=== PATIENT | female | born 1980 | race Caucasian/White ===

== ENCOUNTER 2019-05-05 01:00 | Observation (INO) | payer BC ==
--- NOTE | 2019-05-05 01:14 | PDOC.FPRHP ---
- History of Present Illness Chief Complaint: snake bite History of Present Illness: 38yoF presented to the [place] ED approximately 20 min after being bit by a copperhead on her left ankle. Patient states she was walking her dog in the yard and got bit by a "baby copperhead." Initially had significant pain in the L ankle, but this improved after pain medication. Denies any numbness or tingling in L ankle. She was able to bear weight on the leg. Patient did vomit on the way to the ER - she believes this was due to motion sickness. ED Course: [place]: 4 vials of crofab, 1mg dilaudid (2300), 4mg x2 zofran. - Allergies/Adverse Reactions Allergies Allergy/AdvReac Type Severity Reaction Status Date / Time No Known Allergies Allergy Verified 05/05/19 03:57 - Home Medications Medication Instructions Recorded Confirmed Type Acetaminophen [Tylenol Regular 650 mg PO Q6H PRN 30 Days #120 tab 05/05/19 Rx Strength] Escitalopram Oxalate [Lexapro] 20 mg PO DAILY 05/05/19 05/05/19 History Ibuprofen [Motrin] 800 mg PO Q8H PRN 30 Days #90 tab 05/05/19 Rx - History PMHx: anxiety, depression PSHx: tubal ligation FHx: father - alcoholic, drug use; uncle - DM Social: former tobacco use - smoked 20 yrs, 1pack/day; denies alcohol or drug use; former drug use No allergies - Review of Systems General: denies: fever/chills, weight/appetite/sleep changes, night sweats, fatigue Eyes: denies: vision changes ENT: denies: nasal congestion, rhinorrhea Respiratory: denies: cough, congestion, shortness of breath Cardiovascular: denies: chest pain, palpitation, edema Gastrointestinal: reports: nausea, vomiting. denies: diarrhea, constipation, abdominal pain Genitourinary: denies: dysuria Skin: reports: other (puncture wound from bite). denies: rashes, lesions Musculoskeletal: reports: pain, tenderness, swelling. denies: stiffness Neurological: denies: numbness, syncope, seizure, weakness Psychological: reports: anxiety, depression - Vital signs BP: 128/86, MAP: 100, Pulse: 86, Resp: 19, Temp: 98.1 (Oral), Pain: 2, O2 sat: 98 on (Room Air), Time: 05/05/2019 01:05. Weight 66kg - Physical Exam Constitutional: NAD, awake, alert and oriented, well developed HEENT: normocephalic and atraumatic, conjunctiva clear, grossly normal vision, grossly normal hearing, MMM Neck: supple, trachea midline Heart: RRR, normal S1/S2, no murmurs/rubs/gallops, pulses present Lungs: CTAB, no respiratory distress, good air movement Abdomen: soft, non-tender Musculoskeletal: normal structure, normal tone -Musculoskeletal: mild swelling of the left ankle. marked with sharpie. non-tender. good pedal pulses. Neurological: no focal deficit, normal sensation Skin: no rash/lesions, good turgor Heme/Lymphatic: no unusual bruising or bleeding, no purpura, no petechia Psychiatric: normal mood and affect, good judgment and insight, intact recent and remote memory FMR H&P: Results - Labs Result Diagrams: 05/05/19 01:57 FMR H&P: A/P - Problem List (1) Snake envenomation Current Visit: Yes Status: Acute Code(s): T63.001A - TOXIC EFFECT OF UNSP SNAKE VENOM, ACCIDENTAL, INIT - Plan Snake envenomization s/p 4vials of crofab at [place]. Received 1mg dilaudid, currently not in pain. Tylenol and Motrin for primary pain control, morphine prn Will reevaluate swelling in the morning. If improving, likely d/c in the morning Depression Continue Lexapro Dispo: stable Code: full PCP: Adolfo FMR H&P: Upper Level - Plan Date/Time: 05/05/19111 IAlba MD, have evaluated this patient and agree with findings/plan as outlined by internet sales director resident. Pertinent changes/additions are listed here. HPI: This is a 38yo F who presented to the ER as a transfer after a copperhead bite ot the L ankle. 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 She noted pain to the L ankle. She states that she was walking her dog in the yard and saw a baby copperhead and it bit her on the back of her left ankle. She denies any numbness or tingling to the extremity. She endorses vomiting on the way to the ER but she feels this was more due to motion sickness. She denies any fever, chills, chest pain, palpitations, SOB. See internet sales director note for full details of histories. PE: General: NAD, resting in bed, well developed, pink hair HEENT: NC/AT Cardio: RRR, no murmurs, rubs or gallops Resp: CTAB Abd: soft, non distended, normal BS MSK/SKIN: swelling to L ankle confined to ankle, 2 bite cee noted on posteral lateral L ankle, mild erythema, pulses intact Psych: normal affect/mood, axox3 Plan: [place] Snakebite to L posterior ankle s/p crofab at outside ER. All labs normal. - Will repeat coags in the AM - Monitor swelling to L ankle, elevate LLE - Tylenol, ibuprofen for mild-mod pain, morphine for severe pain Anxiety associated with depression - continue home lexapro Dispo: admit to medical, obs Diet: reg VTE: none PCP: PILAR Mata Will discuss case with attending in the AM Addendum - Attending - Attending Attestation Date/Time: 05/05/19 1033 I personally evaluated the patient and discussed the management with Dr. Puckett I agree with the History, Examination, Assessment and Plan documented above with any addition or exceptions noted below. History and exam repeated by me and agree with residents. Will monitor until 1200 today and likely d/c if no spread. Labs unchanged. will give rx for crutches.
[2019-05-05] MEDS ORDERED: Acetaminophen 325 MG TAB PO PRN (01:43)
[2019-05-05] MEDS ORDERED: Ibuprofen 600 MG TAB PO PRN (01:43)
[2019-05-05] MEDS ORDERED: Morphine 2 MG/ML SYRINGE SLOW IVP PRN (01:43)
[2019-05-05] MEDS ORDERED: Ondansetron ODT 4 MG TAB PO PRN (01:43)
[2019-05-05 02:21] LABS: PTT 33.9 SEC (22.9-36.1); Prothrombin Time 13.1 SEC (12.0-14.7)
[2019-05-05 02:24] LABS: #Lymphocytes 1.3 thou/uL (1.20-3.40); #Monocytes 0.5 thou/uL (0.11-0.59); #Neutrophils 6.6 thou/uL (1.40-6.50); %Basophils 0.4 % (0.0-1.0); %Eosinophils 0.4 % (0.0-10.0); %Lymphocytes 15.6 % (21.0-51.0); %Monocytes 6.3 % (0.0-10.0); %Neutrophils 77.3 % (42.0-75.0); Hemoglobin 13.8 g/dL (12.0-16.0); Mean Corpuscular HGB CONC 34.7 g/dL (32.0-36.0); Mean Corpuscular Hemoglobin 30.3 pg (27.0-31.0); Mean Corpuscular Volume 87.3 fL (78.0-98.0); Mean Platelet Volume 8.1 fL (7.4-10.4); Platelet Count 259 thou/uL (130-400); RBC Distribution Width 13.5 % (11.5-14.5); Red Blood Cell (RBC) Count 4.54 mill/uL (4.20-5.40); White Blood Cell (WBC) Count 8.5 thou/uL (4.8-10.8)
[2019-05-05] MEDS ORDERED: Morphine 4 MG/ML VIAL ONE (02:29)
[2019-05-05 03:00] VITALS: BMI 25.8
[2019-05-05] MEDS ORDERED: Ibuprofen 800 MG TAB PO PRN (10:01)
[2019-05-05 11:50] VITALS: BP 100/58; TEMP 98
--- NOTE | 2019-05-05 16:38 | DIS ---
DATE OF ADMISSION: 05/05/2019 DATE OF DISCHARGE: 05/05/2019 RESIDENT: Zander Beyer MD ADMITTING & DISCHARGE ATTENDING: Julio Toscano MD CONSULTATIONS: None. PROCEDURES: None. PRIMARY DIAGNOSIS: Snake envenomation. SECONDARY DIAGNOSES: Depression. DISCHARGE MEDICATIONS: 1. Acetaminophen 650 mg q.6 hours p.r.n. for pain. 2. Ibuprofen 800 mg p.o. q.8 hours p.r.n. for pain. 3. Continue home dose of Lexapro 20 mg daily. DISCONTINUED MEDICATIONS: 1. Morphine. 2. CroFab. 3. Zofran. HISTORY OF PRESENT ILLNESS: The patient is a 38-year-old female, who presented to [place] ED approximately 20 minutes after being bit by a copperhead on her left ankle. The patient states she was walking her dog in the yard and got bit by baby copperhead. Initially, she had significant pain in the left ankle, but this improved after pain medication. Denies any numbness or tingling in the left ankle. She was able to bear weight on the leg. The patient did vomit on the way to the ER. She believes this was due to motion sickness. In [facility], she was given four vials of CroFab, 1 mg of Dilaudid at 2300 hours, and 4 mg x2 of Zofran. 1. Snake Envenomation Status post four vials of CroFab at [facility], received 1 mg of Dilaudid * Tylenol and Motrin for pain control in hospital with morphine p.r.n. for severe pain, which she did not require during the hospitalization. * She was discharged home with Tylenol and Motrin. * Swelling was evaluated. * Initially, it spread to the entire foot, but receded before discharge. 2. Depression Continue Lexapro. DISPOSITION: Stable. DISCHARGE INSTRUCTIONS: 1. Location: Home. 2. Activity: As tolerated. Script was given for crutches because the patient said she was unable to bear weight on the left foot. 3. Diet: Regular. 4. Followup: Follow up with Dr. Mata at [facility] in 7 days. Job ID: [id number] [facility]
== END 2019-05-05 15:02 | disposition home or self-care (01) ==
LOC: ERS 01:00 → 2SW 01:35
PROVIDERS: ADMIT Family Medicine; ATTEND Family Medicine
DX: T63.091A Toxic effect of venom of other snake, accidental (unintentional), initial encounter (principal); F17.210 Nicotine dependence, cigarettes, uncomplicated; F32.9 Major depressive disorder, single episode, unspecified; F41.9 Anxiety disorder, unspecified; Z79.899 Other long term (current) drug therapy
CPT/HCPCS: 36415; 85025; 85384; 85610; 85730; 96374; G0378; J2270

== ENCOUNTER 2021-06-10 12:53 | Day surgery (SDC) | payer BC ==
[~2021-06-10 12:53] MED LIST: Acetaminophen 500 MG TAB PO SCH; Ferumoxytol (NON ERSD) 510 MG in Sodium Chloride 0.9% 150 ML IVPB SCH
[2021-06-10] MEDS ORDERED: Acetaminophen 500 MG TAB ONE ×2 (13:06)
[2021-06-10 13:11] VITALS: BP 115/66
== END 2021-06-10 14:04 | disposition home or self-care (01) ==
LOC: ONC/OP 12:53
PROVIDERS: ATTEND Family Medicine
DX: D50.9 Iron deficiency anemia, unspecified (principal)
CPT/HCPCS: 96365; J3490; Q0138

== ENCOUNTER 2021-09-12 09:16 | Outpatient (CLI) | payer BC | END 2021-09-12 09:17 | disposition home or self-care (01) | LOC: BICMAMMO 09:16 | PROVIDERS: ATTEND Student in an Organized Health Care Education/Training Program | DX: Z12.31 Encounter for screening mammogram for malignant neoplasm of breast (principal); Z80.3 Family history of malignant neoplasm of breast | CPT/HCPCS: 77063; 77067 ==

== ENCOUNTER 2022-01-28 07:38 | Observation (INO) | payer OTHER, BC ==
[2022-01-28] MEDS ORDERED: Ondansetron PF 4 MG/2 ML Vial ONE (07:52)
[2022-01-28] MEDS ORDERED: Morphine 4 MG/ML VIAL ONE (07:52)
[2022-01-28 08:25] LABS: BHCG - Serum Negative (NEGATIVE); Pregs Control Background? CLEAR/WHITE (CLR/WHITE); Pregs Control Bar Appear? YES (CONTROL BAR)
[2022-01-28 08:27] LABS: #Eosinphils 0.1 thou/uL (0.0-0.7); #Lymphocytes 1.3 thou/uL (1.20-3.40); #Monocytes 0.8 thou/uL (0.11-0.59); #Neutrophils 8.1 thou/uL (1.40-6.50); %Basophils 0.2 % (0.0-1.0); %Eosinophils 0.9 % (0.0-10.0); %Monocytes 7.4 % (0.0-10.0); %Neutrophils 78.5 % (42.0-75.0); Hemoglobin 15.1 g/dL (12.0-16.0); Mean Corpuscular HGB CONC 33.6 g/dL (32.0-36.0); Mean Corpuscular Hemoglobin 30.7 pg (27.0-31.0); Mean Corpuscular Volume 91.5 fl (78.0-98.0); Mean Platelet Volume 7.7 fL (7.4-10.4); Platelet Count 281 10x3/uL (130-400); RBC Distribution Width 11.2 % (11.5-14.5); Red Blood Cell (RBC) Count 4.92 mill/uL (4.20-5.40); White Blood Cell (WBC) Count 10.3 10x3/uL (4.8-10.8)
[2022-01-28 08:38] LABS: ALT (SGPT) 19 U/L (8-55); AST (SGOT) 23 U/L (5-34); Albumin 4.6 g/dL (3.5-5.0); Alkaline Phosphatase 97 U/L (40-110); Anion Gap 14 mmol/L (10-20); BUN (Urea Nitrogen) 11 mg/dL (7.0-18.7); Bilirubin, Total 0.6 mg/dL (0.2-1.2); CK (CPK) 137 U/L (29-168); Calc. Creatinine Clearance 0 mL/min (70-130); Calcium 9.7 mg/dL (7.8-10.44); Carbon Dioxide 26 mmol/L (22-29); Chloride 104 mmol/L (98-107); Estimated GFR 82; Globulin 3.4 g/dL (2.4-3.5); Glucose 88 mg/dL (70-105); Potassium 3.9 mmol/L (3.5-5.1); Sodium 140 mmol/L (136-145)
[2022-01-28] MEDS ORDERED: Iopamidol-370 76% 500 ML 1 ML ONE (09:56)
[2022-01-28] MEDS ORDERED: Fentanyl 100 MCG/2 ML VIAL ONE (10:48)
[2022-01-28 11:20] LABS: SARS-CoV-2 NAA Rapid Test Not Detected (NotDetected)
[2022-01-28] MEDS ORDERED: HYDROcodone/Acetaminophen 5/325 mg Tablet ONE (14:01)
[2022-01-28] MEDS ORDERED: Acetaminophen 325 MG TAB PO PRN (15:44)
[2022-01-28] MEDS ORDERED: TETANUS, DIPHTHERIA TOX,ADULT (TDVAX) 0.5 ML VIAL IM ONE (15:44)
[2022-01-28] MEDS ORDERED: Dextrose 5% in Water 1,000 ML IV PRN (15:44)
[2022-01-28] MEDS ORDERED: traMADol HCl 50 MG TAB PO PRN ×2 (15:44→15:49)
[2022-01-28] MEDS ORDERED: Dextrose 50% Abboject 50 ML SYRINGE SLOW IVP PRN (15:44)
[2022-01-28] MEDS ORDERED: Ondansetron PF 4 MG/2 ML Vial IVP PRN (15:44)
[2022-01-28] MEDS ORDERED: Cyclobenzaprine 10 MG TAB PO PRN (15:50)
[2022-01-28 17:26] VITALS: BMI 27.4
[2022-01-28] MEDS: Ibuprofen 200 MG TAB PO SCH (18:34)
[2022-01-28] MEDS: traMADol HCl 50 MG TAB PO SCH (18:35)
[2022-01-28] MEDS: Famotidine 20 MG TAB PO SCH (22:00)
[2022-01-28] MEDS: Gabapentin 300 MG CAP PO SCH (22:43)
[2022-01-29] MEDS: Ibuprofen 200 MG TAB PO SCH ×3 (00:08→11:48)
[2022-01-29] MEDS: traMADol HCl 50 MG TAB PO SCH ×3 (00:08→11:50)
[2022-01-29] MEDS: Gabapentin 300 MG CAP PO SCH ×2 (09:04→14:15)
[2022-01-29] MEDS: Famotidine 20 MG TAB PO SCH (09:04)
[2022-01-29 14:04] VITALS: TEMP 98.2
[2022-01-29 14:53] VITALS: BP 109/69
== END 2022-01-29 14:36 | disposition home or self-care (01) ==
LOC: ERS 07:38 → SURG A 16:28
PROVIDERS: ADMIT Surgery; ATTEND Surgery
DX: S32.011A Stable burst fracture of first lumbar vertebra, initial encounter for closed fracture (principal); G89.11 Acute pain due to trauma; Z87.891 Personal history of nicotine dependence; Z79.899 Other long term (current) drug therapy; Z20.822 Contact with and (suspected) exposure to COVID-19; V47.5XXA Car driver injured in collision with fixed or stationary object in traffic accident, initial encounter
CPT/HCPCS: 70450; 71045; 71260; 72125; 74177; 80053; 82550; 84703; 85025; 96374; 96375; G0378; J2270; J2405; J3010; Q9967; U0002

== ENCOUNTER 2022-02-11 12:29 | Outpatient (CLI) | payer BC | END 2022-02-11 12:30 | disposition home or self-care (01) | LOC: RAD 12:29 | PROVIDERS: ATTEND Physician Assistant | DX: S32.011A Stable burst fracture of first lumbar vertebra, initial encounter for closed fracture (principal); M48.8X6 Other specified spondylopathies, lumbar region | CPT/HCPCS: 72100 ==

== ENCOUNTER 2022-03-10 12:11 | Outpatient (CLI) | payer BC | END 2022-03-10 12:12 | disposition home or self-care (01) | LOC: RAD 12:11 | PROVIDERS: ATTEND Surgery | DX: S32.009A Unspecified fracture of unspecified lumbar vertebra, initial encounter for closed fracture (principal) | CPT/HCPCS: 72100 ==

== ENCOUNTER 2022-04-22 10:24 | Outpatient (CLI) | payer BC | END 2022-04-22 10:25 | disposition home or self-care (01) | LOC: RAD 10:24 | PROVIDERS: ATTEND Surgery | DX: S32.010D Wedge compression fracture of first lumbar vertebra, subsequent encounter for fracture with routine healing (principal) | CPT/HCPCS: 72100 ==

== ENCOUNTER 2022-10-13 13:26 | Outpatient (CLI) | payer BC | END 2022-10-13 13:27 | disposition home or self-care (01) | LOC: BICMAMMO 13:26 | PROVIDERS: ATTEND Family Medicine | DX: Z12.31 Encounter for screening mammogram for malignant neoplasm of breast (principal); Z80.3 Family history of malignant neoplasm of breast | CPT/HCPCS: 77063; 77067 ==

== ENCOUNTER 2024-01-28 19:30 | Inpatient (IN) | payer BC ==
[~2024-01-28 19:30] MED LIST changes: -Acetaminophen 500 MG TAB PO SCH; -Ferumoxytol (NON ERSD) 510 MG in Sodium Chloride 0.9% 150 ML IVPB SCH; +Iopamidol-370 76% 500 ML MDV (1 ML CHARGE) ONE
[2024-01-28 20:08] LABS: #Basophils Less than 0.03 10x3/uL (0.0-0.2); #Eosinophils Less than 0.03 10x3/uL (0.0-0.7); %Basophils 0.1 % (0.0-1.0); %Lymphocytes 6.1 % (21.0-51.0); %Monocytes 3.5 % (0.0-10.0); %Neutrophils 89.9 % (42.0-75.0); Hematocrit 42.2 % (36.0-47.0); Hemoglobin 14.1 g/dL (12.0-16.0); Mean Corpuscular HGB CONC 33.4 g/dL (32.0-36.0); Mean Corpuscular Hemoglobin 29.9 pg (27.0-31.0); Mean Corpuscular Volume 89.4 fL (78.0-98.0); Mean Platelet Volume 9.4 fL (7.4-10.4); Platelet Count 339 10x3/uL (130-400); RBC Distribution Width 11.6 % (11.5-14.5); Red Blood Cell (RBC) Count 4.72 mill/uL (4.20-5.40)
[2024-01-28 20:19] LABS: BHCG - Serum Negative (NEGATIVE); Pregs Control Background? CLEAR/WHITE (CLR/WHITE); Pregs Control Bar Appear? YES (CONTROL BAR)
[2024-01-28 20:28] LABS: ALT (SGPT) 22 U/L (8-55); AST (SGOT) 27 U/L (5-34); Albumin 4.1 g/dL (3.5-5.0); Alkaline Phosphatase 109 U/L (40-110); Anion Gap 15 mmol/L (10-20); BUN (Urea Nitrogen) 8 mg/dL (7.0-18.7); Bilirubin, Total 0.4 mg/dL (0.2-1.2); Calc. Creatinine Clearance 0 mL/min (70-130); Calcium 9.3 mg/dL (7.8-10.44); Carbon Dioxide 22 mmol/L (22-29); Chloride 105 mmol/L (98-107); Estimated GFR 80; Globulin 4.1 g/dL (2.4-3.5); Glucose 152 mg/dL (70-105); Lipase 18 U/L (8-78); Magnesium 2.1 mg/dL (1.6-2.6); Protein, Total 8.2 g/dL (6.0-8.3); Sodium 138 mmol/L (136-145)
[2024-01-28] MEDS ORDERED: Morphine 4 MG/ML VIAL ONE ×2 (20:35→23:05)
[2024-01-28] MEDS ORDERED: Promethazine HCl 25 MG/ML VIAL ONE (20:36)
[2024-01-28 21:12] LABS: Bilirubin Negative (Negative); Blood, Urine Negative (Negative); CAUTI Indications for Culture Pelvic or flank pain; Clarity Turbid (Clear); Glucose, Urine (Dipstick) Normal (Negative); Ketone, Urine 150 mg/dL (Negative); Leukocyte Negative Leu/uL (Negative); Nitrite Negative (Negative); Protein, Urine (Dipstick) 20 mg/dL (Neg-Trace); Squamous Epithelial 0-3 HPF (0-3); Urobilinogen Normal mg/dL (Less than 2)
[2024-01-28 21:23] LABS: Bacteria/HPF Rare-Few HPF (None Seen); RBC/HPF 0-3 HPF (0-3); WBC/HPF 0-3 HPF (0-3)
[2024-01-28 21:24] LABS: Urine Culture Reflex No No
[2024-01-28] MEDS ORDERED: Piperacillin/Tazobactam 3.375 GM VIAL ONE (23:05)
[2024-01-28] MEDS ORDERED: Dextrose 5% in Water 1,000 ML IV PRN (23:53)
[2024-01-28] MEDS ORDERED: hydrALAZINE 20 MG/ML VIAL SLOW IVP PRN (23:53)
[2024-01-28] MEDS ORDERED: Dextrose 50% Abboject 50 ML SYRINGE SLOW IVP PRN (23:53)
[2024-01-28] MEDS ORDERED: Glucagon 1 MG/ML KIT IM PRN (23:53)
[2024-01-29 01:10] VITALS: BMI 26.9
[2024-01-29] MEDS: Piperacillin/Tazobactam 3.375 GM in Sodium Chloride 0.9% 100 ML IVPB SCH (03:17)
[2024-01-29] MEDS: HYDROcodone/Acetaminophen 7.5/325 mg Tablet PO PRN (03:17)
[2024-01-29] MEDS: Lactated Ringer's 1,000 ML IV SCH (03:18)
[2024-01-29 05:20] LABS: #Basophils 0.03 10x3/uL (0.0-0.2); %Basophils 0.2 % (0.0-1.0); %Eosinophils 0.2 % (0.0-10.0); %Lymphocytes 15.1 % (21.0-51.0); %Monocytes 10.6 % (0.0-10.0); %Neutrophils 73.6 % (42.0-75.0); Hematocrit 36.8 % (36.0-47.0); Hemoglobin 12.1 g/dL (12.0-16.0); Mean Corpuscular HGB CONC 32.9 g/dL (32.0-36.0); Mean Corpuscular Hemoglobin 29.3 pg (27.0-31.0); Mean Corpuscular Volume 89.1 fL (78.0-98.0); Platelet Count 270 10x3/uL (130-400); RBC Distribution Width 11.9 % (11.5-14.5); Red Blood Cell (RBC) Count 4.13 mill/uL (4.20-5.40)
[2024-01-29 05:52] LABS: Anion Gap 11 mmol/L (10-20); BUN (Urea Nitrogen) 7 mg/dL (7.0-18.7); Calc. Creatinine Clearance 113 mL/min (70-130); Calcium 7.9 mg/dL (7.8-10.44); Carbon Dioxide 21 mmol/L (22-29); Chloride 108 mmol/L (98-107); Estimated GFR 109; Glucose 118 mg/dL (70-105); Potassium 3.3 mmol/L (3.5-5.1); Sodium 137 mmol/L (136-145)
[2024-01-29] MEDS: Morphine 2 MG/ML VIAL SLOW IVP PRN (08:17)
[2024-01-29] MEDS: Potassium Chloride 20 MEQ in Premix 1 BAG IVPB SCH ×2 (08:20→15:34)
[2024-01-29] MEDS: Ondansetron PF 4 MG/2 ML Vial IVP PRN (08:23)
[2024-01-29] MEDS: busPIRone HCl 10 MG TAB PO SCH (08:26)
[2024-01-29] MEDS: BuPROPion XL 150 MG ER.TAB PO SCH (08:26)
[2024-01-29] MEDS ORDERED: fentaNYL 50 mcg/mL 1 mL Vial ONE (10:40)
[2024-01-29] MEDS ORDERED: Bupivacaine 0.25% HCL 30 ML VIAL ONE (10:50)
[2024-01-29] MEDS ORDERED: EPINEPHrine 1 MG/ML VIAL ONE (10:50)
[2024-01-29] MEDS ORDERED: Rocuronium Bromide 10 MG/ML (10ML VIAL) ONE (10:58)
[2024-01-29] MEDS ORDERED: PROPOFOL 20 ML ONE (10:58)
[2024-01-29] MEDS ORDERED: Lidocaine 2% PF 5 ML VIAL ONE (10:58)
[2024-01-29] MEDS ORDERED: fentaNYL PF 100 MCG/2 ML SYRINGE ONE (10:58)
[2024-01-29] MEDS ORDERED: Piperacillin/Tazobactam 3.375 GM VIAL ONE (11:01)
[2024-01-29] MEDS ORDERED: Midazolam HCl 2 mg/2 ml Vial ONE (11:05)
[2024-01-29] MEDS ORDERED: Ondansetron PF 4 MG/2 ML Vial ONE (11:24)
[2024-01-29] MEDS ORDERED: Dexamethasone 20 MG/5 ML VIAL ONE (11:24)
[2024-01-29] MEDS ORDERED: Ketorolac Tromethamine 30 MG (1 mL) VIAL ONE (11:24)
[2024-01-29] MEDS ORDERED: Esmolol 100 MG/10 ML VIAL ONE (11:26)
[2024-01-29] MEDS ORDERED: PHENYLEPHRINE-NS 100 MCG/ML 10 ML SYRINGE ONE (11:33)
[2024-01-29] MEDS ORDERED: SUGAMMADEX SODIUM 200 MG/2 ML VIAL ONE (12:03)
[2024-01-29] MEDS ORDERED: HYDROmorphone 2 MG/ML VIAL SLOW IVP PRN (12:28)
[2024-01-29] MEDS ORDERED: Promethazine HCl 25 MG/ML VIAL IM PRN (12:28)
[2024-01-29] MEDS ORDERED: Ondansetron HCl/PF 4 MG/2 ML Vial IVP PRN (12:28)
[2024-01-29] MEDS ORDERED: PACU-Morphine 4MG/ML VIAL SLOW IVP PRN (12:28)
[2024-01-29] MEDS: Amitriptyline HCl 25 MG TAB PO SCH (20:41)
[2024-01-29] MEDS: Acetaminophen 325 MG TAB PO PRN (20:42)
[2024-01-29] MEDS: Gabapentin 300 MG CAP PO SCH (20:42)
[2024-01-30 04:44] LABS: #Basophils Less than 0.03 10x3/uL (0.0-0.2); #Eosinophils Less than 0.03 10x3/uL (0.0-0.7); %Basophils 0.1 % (0.0-1.0); %Lymphocytes 8.6 % (21.0-51.0); %Monocytes 7.1 % (0.0-10.0); %Neutrophils 83.6 % (42.0-75.0); Hematocrit 35.4 % (36.0-47.0); Hemoglobin 11.8 g/dL (12.0-16.0); Mean Corpuscular HGB CONC 33.3 g/dL (32.0-36.0); Mean Corpuscular Hemoglobin 30.3 pg (27.0-31.0); Mean Corpuscular Volume 90.8 fL (78.0-98.0); Mean Platelet Volume 9.4 fL (7.4-10.4); Platelet Count 253 10x3/uL (130-400); RBC Distribution Width 11.9 % (11.5-14.5)
[2024-01-30 05:09] LABS: Anion Gap 12 mmol/L (10-20); BUN (Urea Nitrogen) 7 mg/dL (7.0-18.7); Calc. Creatinine Clearance 105 mL/min (70-130); Carbon Dioxide 23 mmol/L (22-29); Chloride 105 mmol/L (98-107); Estimated GFR 99; Glucose 122 mg/dL (70-105); Potassium 3.8 mmol/L (3.5-5.1); Sodium 136 mmol/L (136-145)
[2024-01-30 06:04] LABS: Calcium 8.7 mg/dL (7.8-10.44); Magnesium 1.9 mg/dL (1.6-2.6)
[2024-01-30 11:39] VITALS: BP 110/64; TEMP 98
== END 2024-01-30 12:55 | disposition home or self-care (01) | DRG 398 ==
LOC: ERS 19:30 → SURG B 01-29 00:56
PROVIDERS: ADMIT Student in an Organized Health Care Education/Training Program; ATTEND Student in an Organized Health Care Education/Training Program
PROC: 0DTJ4ZZ Resection of Appendix, Percutaneous Endoscopic Approach (ICD-10-PCS; principal; 2024-01-29)
DX: K35.891 Other acute appendicitis without perforation, with gangrene (principal); K56.1 Intussusception; G43.909 Migraine, unspecified, not intractable, without status migrainosus; F43.10 Post-traumatic stress disorder, unspecified; F41.9 Anxiety disorder, unspecified; F32.A Depression, unspecified; F60.3 Borderline personality disorder; Z79.899 Other long term (current) drug therapy; Z79.1 Long term (current) use of non-steroidal anti-inflammatories (NSAID)
CPT/HCPCS: 36415; 74177; 80048; 80053; 81001; 83605; 83690; 83735; 84100; 84703; 85025; 88304; 96374; 96375; 96376; A4649; J0171; J0665; J1100; J1885; J2250; J2272; J2405; J2543; J2550; J2704; J3010; J3480; J7120; Q9967

== ENCOUNTER 2024-02-11 16:53 | Inpatient (IN) | payer BC ==
[2024-02-11 17:57] LABS: #Basophils 0.03 10x3/uL (0.0-0.2); %Basophils 0.2 % (0.0-1.0); %Eosinophils 0.5 % (0.0-10.0); %Monocytes 7.7 % (0.0-10.0); %Neutrophils 80.2 % (42.0-75.0); Hematocrit 38.5 % (36.0-47.0); Hemoglobin 12.4 g/dL (12.0-16.0); Mean Corpuscular HGB CONC 32.2 g/dL (32.0-36.0); Mean Platelet Volume 9.1 fL (7.4-10.4); Platelet Count 575 10x3/uL (130-400); RBC Distribution Width 11.8 % (11.5-14.5); Red Blood Cell (RBC) Count 4.28 mill/uL (4.20-5.40)
[2024-02-11 18:20] LABS: ALT (SGPT) 28 U/L (8-55); AST (SGOT) 26 U/L (5-34); Albumin 3.2 g/dL (3.5-5.0); Alkaline Phosphatase 138 U/L (40-110); Anion Gap 12 mmol/L (10-20); BUN (Urea Nitrogen) 11 mg/dL (7.0-18.7); Bilirubin, Total 0.4 mg/dL (0.2-1.2); Calc. Creatinine Clearance 0 mL/min (70-130); Calcium 9.8 mg/dL (7.8-10.44); Carbon Dioxide 25 mmol/L (22-29); Chloride 99 mmol/L (98-107); Estimated GFR 103; Globulin 5.3 g/dL (2.4-3.5); Glucose 115 mg/dL (70-105); Protein, Total 8.5 g/dL (6.0-8.3); Sodium 132 mmol/L (136-145)
[2024-02-11 18:24] LABS: BHCG - Serum Negative (NEGATIVE); Pregs Control Background? CLEAR/WHITE (CLR/WHITE); Pregs Control Bar Appear? YES (CONTROL BAR)
[2024-02-11] MEDS ORDERED: SUMAtriptan Succinate 50 MG TAB PO PRN (18:29)
[2024-02-11] MEDS ORDERED: Morphine 4 MG/ML VIAL ONE (18:56)
[2024-02-11] MEDS ORDERED: Ondansetron PF 4 MG/2 ML Vial ONE (18:56)
[2024-02-11] MEDS ORDERED: Morphine 2 MG/ML VIAL SLOW IVP PRN (19:17)
[2024-02-11] MEDS ORDERED: Ipratropium/Albuterol 3 ML NEB NEB PRN (19:17)
[2024-02-11] MEDS ORDERED: Piperacillin/Tazobactam 4.5 GM VIAL ONE (19:26)
[2024-02-11] MEDS ORDERED: Sodium Chloride 0.9% 100 ML ONE (19:27)
[2024-02-11] MEDS ORDERED: metroNIDAZOLE 500 MG (100 mL) BAG ONE (20:13)
[2024-02-11] MEDS: busPIRone HCl 10 MG TAB PO SCH (21:24)
[2024-02-11] MEDS: Amitriptyline HCl 25 MG TAB PO SCH (21:24)
[2024-02-11] MEDS: Acetaminophen 325 MG TAB PO SCH (21:24)
[2024-02-11] MEDS: Sodium Chloride 0.9% 1,000 ML IV SCH (21:25)
[2024-02-11] MEDS: Famotidine/PF 20 mg/2ml Vial SLOW IVP SCH (21:26)
[2024-02-11 22:01] VITALS: BMI 26.4
[2024-02-12] MEDS: Piperacillin/Tazobactam 3.375 GM in Sodium Chloride 0.9% 100 ML IVPB SCH (01:15)
[2024-02-12 05:30] LABS: #Basophils 0.03 10x3/uL (0.0-0.2); %Basophils 0.3 % (0.0-1.0); %Eosinophils 2.1 % (0.0-10.0); %Monocytes 12.7 % (0.0-10.0); %Neutrophils 64.7 % (42.0-75.0); Hematocrit 29.7 % (36.0-47.0); Hemoglobin 9.8 g/dL (12.0-16.0); Mean Corpuscular Hemoglobin 29.3 pg (27.0-31.0); Mean Corpuscular Volume 88.9 fL (78.0-98.0); Mean Platelet Volume 9.2 fL (7.4-10.4); Platelet Count 440 10x3/uL (130-400); RBC Distribution Width 11.9 % (11.5-14.5); Red Blood Cell (RBC) Count 3.34 mill/uL (4.20-5.40)
[2024-02-12 05:43] LABS: Anion Gap 10 mmol/L (10-20); BUN (Urea Nitrogen) 11 mg/dL (7.0-18.7); Calc. Creatinine Clearance 114 mL/min (70-130); Calcium 7.8 mg/dL (7.8-10.44); Carbon Dioxide 23 mmol/L (22-29); Chloride 109 mmol/L (98-107); Estimated GFR 112; Glucose 108 mg/dL (70-105); Potassium 4.1 mmol/L (3.5-5.1); Sodium 138 mmol/L (136-145)
[2024-02-12] MEDS: Ketorolac Tromethamine 30 MG (1 mL) VIAL IVP SCH ×2 (08:21→14:23)
[2024-02-12] MEDS: Acetaminophen 500 MG TAB PO SCH (08:21)
[2024-02-12] MEDS: BuPROPion XL 150 MG ER.TAB PO SCH (08:21)
[2024-02-12] MEDS: Ondansetron PF 4 MG/2 ML Vial IVP PRN (09:43)
[2024-02-12] MEDS ORDERED: Bupivacaine PF 0.5% 30 ML VIAL ONE (10:58)
[2024-02-12] MEDS ORDERED: EPINEPHrine 1 MG/ML VIAL ONE (10:58)
[2024-02-12] MEDS ORDERED: Dexmedetomidine 200 MCG/2 ML VIAL ONE (11:04)
[2024-02-12] MEDS ORDERED: fentaNYL PF 100 MCG/2 ML SYRINGE ONE ×2 (11:04→11:43)
[2024-02-12] MEDS ORDERED: SUGAMMADEX SODIUM 200 MG/2 ML VIAL ONE ×2 (11:04→12:01)
[2024-02-12] MEDS ORDERED: Rocuronium Bromide 10 MG/ML (10ML VIAL) ONE (11:04)
[2024-02-12] MEDS ORDERED: Ondansetron PF 4 MG/2 ML Vial ONE (11:04)
[2024-02-12] MEDS ORDERED: Lidocaine 1% PF 5 ML VIAL ONE (11:04)
[2024-02-12] MEDS ORDERED: Dexamethasone 4 mg/ml Vial ONE (11:04)
[2024-02-12] MEDS ORDERED: Midazolam HCl 2 mg/2 ml Vial ONE (11:04)
[2024-02-12] MEDS ORDERED: PROPOFOL 20 ML ONE (11:04)
[2024-02-12] MEDS ORDERED: Esmolol 100 MG/10 ML VIAL ONE (11:44)
[2024-02-12] MEDS: Morphine 4 MG/ML VIAL SLOW IVP PRN (16:16)
[2024-02-12] MEDS: Enoxaparin 40 MG (0.4 mL) SYRINGE SC SCH (21:35)
[2024-02-12] MEDS: traMADol HCl 50 MG TAB PO PRN (22:41)
[2024-02-13] MEDS: Amoxicillin/Potassium Clav 875 MG TAB PO SCH (08:31)
[2024-02-13 09:23] LABS: #Basophils 0.03 10x3/uL (0.0-0.2); %Basophils 0.3 % (0.0-1.0); %Eosinophils 0.6 % (0.0-10.0); %Lymphocytes 16.3 % (21.0-51.0); %Monocytes 5.8 % (0.0-10.0); %Neutrophils 76.6 % (42.0-75.0); Hematocrit 28.9 % (36.0-47.0); Hemoglobin 9.4 g/dL (12.0-16.0); Mean Corpuscular HGB CONC 32.5 g/dL (32.0-36.0); Mean Corpuscular Hemoglobin 29.4 pg (27.0-31.0); Mean Corpuscular Volume 90.3 fL (78.0-98.0); Mean Platelet Volume 9.2 fL (7.4-10.4); Platelet Count 447 10x3/uL (130-400); RBC Distribution Width 11.7 % (11.5-14.5)
[2024-02-13 11:39] VITALS: BP 102/67; TEMP 97.5
== END 2024-02-13 15:58 | disposition home or self-care (01) | DRG 856 ==
LOC: ERS 16:53 → SURG A 19:21
PROVIDERS: ADMIT Specialist; ATTEND Specialist
PROC: 0WJG4ZZ Inspection of Peritoneal Cavity, Percutaneous Endoscopic Approach (ICD-10-PCS; principal; 2024-02-12)
DX: T81.43XA Infection following a procedure, organ and space surgical site, initial encounter (principal); K35.33 Acute appendicitis with perforation, localized peritonitis, and gangrene, with abscess; F41.9 Anxiety disorder, unspecified; F32.A Depression, unspecified; G43.909 Migraine, unspecified, not intractable, without status migrainosus; Z90.49 Acquired absence of other specified parts of digestive tract; Z98.51 Tubal ligation status; Z79.899 Other long term (current) drug therapy
CPT/HCPCS: 36415; 74177; 80048; 80053; 83605; 84703; 85025; 87040; 87428; 96365; 96375; J0171; J0665; J1100; J1650; J1885; J2250; J2272; J2405; J2543; J2704; J3490; J7030; Q9967

== ENCOUNTER 2024-10-19 15:10 | Emergency (ER) | payer BC ==
[2024-10-19 16:20] LABS: #Basophils Less than 0.03 10x3/uL (0.0-0.2); #Eosinophils 0.12 10x3/uL (0.0-0.7); #Monocytes 0.78 10x3/uL (0.11-0.59); #Neutrophils 10.11 10x3/uL (1.40-6.50); %Basophils 0.2 % (0.0-1.0); %Eosinophils 0.9 % (0.0-10.0); %Lymphocytes 12.6 % (21.0-51.0); %Monocytes 6.2 % (0.0-10.0); %Neutrophils 79.7 % (42.0-75.0); Hematocrit 37.5 % (36.0-47.0); Hemoglobin 12.8 g/dL (12.0-16.0); Mean Corpuscular Hemoglobin 29.6 pg (27.0-31.0); Mean Corpuscular Volume 86.6 fL (78.0-98.0); Platelet Count 293 10x3/uL (130-400); Red Blood Cell (RBC) Count 4.33 mill/uL (4.20-5.40); White Blood Cell (WBC) Count 12.68 10x3/uL (4.8-10.8)
[2024-10-19] MEDS ORDERED: Ketorolac Tromethamine 30 MG (1 mL) VIAL ONE (16:35)
[2024-10-19 16:40] LABS: ALT (SGPT) 71 U/L (Less than 34); AST (SGOT) 169 U/L (11-34); Albumin 4.0 g/dL (3.1-4.5); Alkaline Phosphatase 142 U/L (40-110); Anion Gap 14 mmol/L (10-20); BUN (Urea Nitrogen) 11 mg/dL (7.0-18.7); Bilirubin, Total 0.8 mg/dL (0.3-1.2); Calc. Creatinine Clearance 0 mL/min (70-130); Calcium 9.4 mg/dL (7.8-10.44); Carbon Dioxide 23 mmol/L (22-29); Chloride 109 mmol/L (98-107); Globulin 3.1 g/dL (2.4-3.5); Glucose 119 mg/dL (70-105); Lipase 47 U/L (8-78); Potassium 3.7 mmol/L (3.5-5.1); Sodium 142 mmol/L (136-145)
[2024-10-19 17:11] LABS: Bacteria/HPF None Seen HPF (None Seen); CAUTI Indications for Culture Acute Hematuria; Glucose, Urine (Dipstick) Normal (Negative); Leukocyte Negative Leu/uL (Negative); Protein, Urine (Dipstick) Negative (Neg-Trace); RBC/HPF 0-3 HPF (0-3); Specific Gravity, Urine 1.011 (1.002-1.036); WBC/HPF 0-3 HPF (0-3)
[2024-10-19 17:12] LABS: Urine Culture Reflex No No
[2024-10-19] MEDS ORDERED: Mag-Al 1200 mg/1200 mg/30 ML UDCUP ONE (18:55)
[2024-10-19] MEDS ORDERED: Lidocaine Viscous Sol 2% 15 ml UD Cup ONE (18:55)
== END 2024-10-19 19:02 | disposition home or self-care (01) ==
LOC: ERS 15:10
DX: K80.20 Calculus of gallbladder without cholecystitis without obstruction (principal); Z87.891 Personal history of nicotine dependence
CPT/HCPCS: 71046; 74177; 76705; 80053; 81001; 83690; 84484; 85025; 93005; 96361; 96374; J1885